=== PATIENT | female | born 1970 | race Caucasian/White ===

== ENCOUNTER → 2016-11-30 | Outpatient (CLI) | payer SELFPAY ==
[2016-01-03 18:40] VITALS: BP 107/74
--- NOTE | 2016-12-01 12:08 | CT ---
HISTORY: Family history of heart disease. Study: Cardiac calcium scoring. Technique: Multiple axial images of the chest were obtained on a [address] from the main pulmonary artery to the base of the heart. Noncontrast evaluation of the heart was performed for calcium scoring with prospective gating. Findings: A total calcium score of 0 is observed which is between the 0 and 25th percentile for females betwee n the ages of 45 and 49. This score implies no identifiable plaque with very low, generally less th an 5%, risk of coronary artery disease. Extracardiac findings: No pathologically enlarged lymphadenopathy can be observed. No significant pericardial effusion can be identified. The visualized portions of the lung parenchyma are unremarkable. No lytic or blast ic lesions can be identified within the visualized bony thorax. IMPRESSION: Calcium score of 0. Reported By:
== END ==
LOC: RAD 08:13
PROVIDERS: ATTEND Internal Medicine Cardiovascular Disease
DX: Z13.6 Encounter for screening for cardiovascular disorders (principal)